=== PATIENT | male | born 1980 | race Hispanic/Latino ===

== ENCOUNTER 2017-07-10 23:38 | Observation (INO) | payer SELFPAY ==
[~2017-07-10] VITALS: Ht 172.7 cm; Wt 88.8 kg
[2017-07-11] MEDS ORDERED: LIDODERM 5% P1 PATCH TD (02:31)
[2017-07-11] MEDS ORDERED: PERCOCET 5/31 TABLET PO (02:31)
[2017-07-11] MEDS ORDERED: MEDROL DOSEPAK4 MG PO (02:31)
[2017-07-11] MEDS ORDERED: FLEXERIL10 MG PO (06:02)
[2017-07-11] MEDS ORDERED: PREVACID 24HR15 MG PO (06:02)
[2017-07-11] MEDS ORDERED: TYLENOL ARTHRI650 MG PO (06:03)
[2017-07-11 13:11] VITALS: BP 157/83
[2017-07-11 20:17] VITALS: BP 111/61
[2017-07-11 23:29] VITALS: BP 131/67
[2017-07-12 07:30] VITALS: BP 121/70
[2017-07-12] MEDS ORDERED: NAPROSYN250 MG PO (12:01)
[2017-07-12] MEDS ORDERED: CYCLOBENZAPRINE10 MG PO (12:01)
[2017-07-12] MEDS ORDERED: OXYCODONE-APAP1 EACH PO (12:01)
[2017-07-12] MEDS ORDERED: MEDROL DOSEPAK4 MG PO (12:01)
== END 2017-07-12 14:31 | disposition home or self-care (01) ==
LOC: EME 23:38 → EDOF 07-11 05:19 → 5WEST 07-11 05:19 → EDOF 07-11 05:19 → ENRESERV 07-11 05:24 → 5WEST 07-11 12:56
DX: M51.16 Intervertebral disc disorders with radiculopathy, lumbar region (principal); R26.89 Other abnormalities of gait and mobility; Z87.891 Personal history of nicotine dependence; Z80.9 Family history of malignant neoplasm, unspecified; Z82.61 Family history of arthritis
CPT/HCPCS: 70140; 72131; 72148; 81003; 99281; 99285; G0378; J1170; J1885; J2270; J2405; J3010; J7030; J7509; J7512